=== PATIENT | female | born 1985 | race Hispanic/Latino ===

== ENCOUNTER 2019-04-29 20:58 | Emergency (ER) | payer MEDICAID ==
[~2019-04-29 20:58] MED LIST: ACET-2247 PO; PREN1TAB89 PO; folic acid PO
[2019-04-29 21:41] LABS: APPEARANCE,URINE Cloudy (CLEAR); BILIRUBIN,URINE Negative (NEGATIVE); COLOR,URINE Dark Yellow (YELLOW); GLUCOSE, URINE (UA) Negative (NEGATIVE); KETONES,URINE Negative (NEGATIVE); LEUKOCYTE ESTERASE ,URINE Trace (NEGATIVE); NITRATE,URINE Negative (NEGATIVE); OCCULT BLOOD,URINE Large (NEGATIVE); PROTEIN,URINE Trace mg/dL (NEGATIVE)
[2019-04-29 21:51] LABS: HCG,QUAL RESULT NEGATIVE (NEGATIVE)
[2019-04-29 22:01] LABS: BACTERIA,URINE Few /HPF (None Seen); MUCUS,URINE Few LPF (None Seen)
[2019-04-29] MEDS ORDERED: DIAZEPAM 5 MG TABLET ONE (22:11)
[2019-04-29] MEDS ORDERED: LIDOCAINE 5% TOPICAL PATCH TP ONE (22:11)
[2019-04-29] MEDS ORDERED: KETOROLAC TROMETHAMINE 60 MG/2 ML VIAL ONE (22:11)
[2019-04-29 22:39] LABS: AMPHET/METH SCREEN,URINE NEGATIVE (NEGATIVE); BARBITURATE SCREEN, URINE NEGATIVE (NEGATIVE); BENZODIAZEPINES SCREEN,URINE NEGATIVE (NEGATIVE); CANNABINOID SCREEN,URINE NEGATIVE (NEGATIVE); COCAINE SCREEN,URINE NEGATIVE (NEGATIVE); OPIATE SCREEN,URINE NEGATIVE (NEGATIVE); PHENCYCLIDINE SCREEN,URINE NEGATIVE (NEGATIVE)
== END 2019-04-29 22:58 | disposition home or self-care (01) ==
LOC: EDH 20:58
DX: M62.830 Muscle spasm of back (principal)
CPT/HCPCS: 71046; 80305; 81001; 81025; 96372; 99285; J1885